=== PATIENT | female | born 1950 | race Caucasian/White ===

== ENCOUNTER 2017-06-06 14:35 | Observation (INO) | payer OTHER ==
[~2017-06-06 14:35] MED LIST: AMLO5 PO; BENZ100 PO; IPRASOL INH; LEVA500T33 PO; NEBULIZER/ADULT1 KIT INH; PRED10PA PO; ZITHTAB PO
[2017-06-06] MEDS ORDERED: SODIUM CHLORIDE 0.9% FLUSH 10 ML FLUSH IV FLUSH PRN (19:15)
[2017-06-06 20:26] VITALS: BP 176/92; PULSE 77; RESP 20; TEMP 97.5; O2SAT 92; O2SAT 94
[2017-06-06] MEDS ORDERED: LORazepam 2 MG/ML VIAL IV PUSH PRN (21:00)
[2017-06-06] MEDS: SODIUM CHLORIDE 0.9% FLUSH 10 ML FLUSH IV FLUSH SCH (21:36)
--- NOTE | 2017-06-06 21:58 | RADRPT ---
EXAM DATE/TIME: 06/06/2017 21:15 [facility] COMPARISON: No previous studies available for comparison. INDICATIONS : Cerebrovascular accident. MEDICAL HISTORY : Hypertension. Anxiety. Cerebrovascular accident. SURGICAL HISTORY : Hysterectomy. Lumpectomy. ENCOUNTER: Initial ACUITY: 1 day PAIN SCORE: 0/10 LOCATION: Bilateral neck PEAK SYSTOLIC VELOCITIES (cm/sec): ICA/CCA RATIO: Right: 1.0 Left: 2.3 ICA: Right: 91 Left: 171 CCA: Right: 90 Left: 75 ECA: Right: 97 Left: 96 VERTEBRAL: Right: 55 antegrade Left: 72 antegrade Elevated flow velocities and ICA/CCA ratios have been found to correlate with increased degrees of vessel stenosis, calculated as percentage of diameter relative to a normal segment of distal ICA/CCA FINDINGS: RIGHT CAROTID: Minimal calcified plaque in the carotid bulb. The waveforms are within normal limits. LEFT CAROTID: Scattered, punctate atherosclerotic calcified plaquing throughout the left carotid system.. The wave forms are within normal limits. VERTEBRAL ARTERIES: Antegrade flow is seen in both vertebral arteries. MISCELLANEOUS: None. CONCLUSION: 1. Minimal atherosclerotic plaque in the right carotid bulb with scattered punctate areas of calcific ation throughout the left carotid system. 2. Doppler velocities and ratios suggest a 50-69% stenosis in the left internal carotid system. Anteg rade flow in both vertebral arteries. Hemant Palacios MD on June 06, 2017 at 21:52 Board Certified Radiologist. This report was verified electronically.
--- NOTE | 2017-06-06 22:27 | RADRPT ---
EXAM DATE/TIME: 06/06/2017 21:49 [facility] COMPARISON: No previous studies available for comparison. INDICATIONS : CVA. MEDICAL HISTORY : None. SURGICAL HISTORY : Hysterectomy. Lumpectomy. ENCOUNTER: Initial ACUITY: 1 day PAIN SCORE: 5/10 LOCATION: Bilateral cranial orbits region. TECHNIQUE: Multiplanar, multisequence MRI of the brain was performed without contrast. FINDINGS: CEREBRUM: The ventricles are normal for age. No evidence of midline shift, mass lesion, hemorrhage or acute in farction. No extraaxial fluid collections are seen. The pituitary gland and suprasellar cistern are normal in configuration. WHITE MATTER: Minimal periventricular and scattered deep white matter tract areas of increased T2 and flair signal intensity. Similar findings in the pontine nucleus. POSTERIOR FOSSA: The cerebellum and brainstem are intact. The 4th ventricle is midline. The cerebellopontine angle is unremarkable. The cerebellar tonsils are normal in position. DIFFUSION IMAGING: No focal areas of restricted diffusion are seen. No evidence of acute infarction. EXTRACRANIAL: The visualized portions of the orbits and paranasal sinuses are unremarkable. CONCLUSION: 1. Chronic changes of mild pontine, periventricular and deep white matter tracts for vessel ischemic demyelination. 2. Nothing acute. Hemant Palacios MD on June 06, 2017 at 22:24 Board Certified Radiologist. This report was verified electronically.
--- NOTE | 2017-06-06 22:38 | RADRPT ---
EXAM DATE/TIME: 06/06/2017 21:49 [facility] COMPARISON: No previous studies available for comparison. INDICATIONS : CVA. MEDICAL HISTORY : None. SURGICAL HISTORY : Hysterectomy. Lumpectomy. ENCOUNTER: Initial ACUITY: 1 day PAIN SCORE: 5/10 LOCATION: Bilateral cranial orbits region. Please note a normal MRA of the brain does not entirely exclude the possibility of a small aneurysm, nor the possibility of distal intracranial vessel disease. TECHNIQUE: 3D time of flight MRA was performed. Source images, multiplanar STS MIP, and 3D volume MIP reconstru ctions were reviewed. FINDINGS: There is excellent visualization of the major intracranial arteries out to the second-order branch ve ssels. There is no evidence for aneurysm, vessel truncation or stenosis, and no evidence for vascula r malformation. Tortuosity of the posterior circulation. CONCLUSION: Intracranial vessels are patent without aneurysmal. Some tortuosity of the posterior circulation . Hemant Palacios MD on June 06, 2017 at 22:35 Board Certified Radiologist. This report was verified electronically.
--- NOTE | 2017-06-06 23:43 | HHI.HP ---
[facility] Non[facility]Staff Admission Diagnosis Visual field impairment, history of retinal CVA . Diagnoses: (1) Visual field defect of left eye (2) Community acquired pneumonia Chief Complaint: Seeing a "[place] of smoke" in her left visual field Travel History International Travel<30 Days: No Contact w/Intl Traveler <30 Da: No History of Present Illness Ms. Castaneda is a 67-year-old female with a history of tobacco abuse, retinal CVA , and hypertension who presented to the emergency room and [place] on 2016 complaining of a cloudy disturbance in her left field of vision that began 06/05 in the morning. She told the emergency room physician that she went to her "eye doctor" where they did a dilated eye exam along with other testing. She was told that her eye was "okay". She was concerned given her history of retinal CVA with vision loss in her right eye and came in to be evaluated. She was transferred to [facility] for further neurological evaluation following a negative head CT in [place]. The patient is seen in the CDU following MRI/MRA testing. She is sleepy after being given Ativan 1 mg IV for testing due to claustrophobia. She tells me that she started to see a "[place] of smoke" with her left eyes starting yesterday morning. She states that her symptoms are still present but are now accompanied by an appearance of "strings" between the [place] of smoke. She reports mild photophobia which is also noted during examination. She denies any eye pain. She denies any headache. She denies any unilateral weakness or paresthesias. She denies any problems with speech or swallowing. She does complain of fever up to 101 accompanied by nausea and dizziness. She states she's been sick for about 2 weeks with a cough and has been placed on antibiotics with persistent symptoms. Throughout the visit, she is noted to have a congested sounding cough. She denies any vomiting or diarrhea. Review of Systems Except as stated in HPI: all other systems reviewed are Neg Past Family Social History Past Medical History Hypertension Retinal CVA Respiratory infection for 2 weeks - Denies COPD but likely has COPD given her extensive smoking history Denies COPD, coronary artery disease, diabetes mellitus, liver problems, kidney problems, DVT, PE, seizures, cancers, or thyroid dysfunction. . Past Surgical History Hysterectomy Tonsillectomy Multiple breast lumpectomies bilateral (x 5) with benign findings . Reported Medications Reported Meds & Active Scripts Active Reported Norvasc (Amlodipine Besylate) 5 Mg Tab 5 Mg PO DAILY . Allergies: Coded Allergies: No Known Allergies (Verified Allergy, Unknown, 06/06/17) Active Ordered Medications Current Medications Sodium Chloride (NS Flush) 2 ml BID IV FLUSH Last administered on 06/06/17 21 :36; Start 06/06/17 at 21:00 Sodium Chloride (NS Flush) 2 ml UNSCH PRN IV FLUSH FLUSH AFTER USING IV ACCESS ; Start 06/06/17 at 19:15 Influenza Virus Vaccine (Flu (Quadrivalent) Vaccine Inj) 0.5 ml ONCE ONCE IM ; Start 06/07/17 at 10:00; Stop 06/07/17 at 10:01 Pneumococcal Polyvalent Vaccine (Pneumovax-23 Inj) 25 mcg ONCE ONCE IM ; Start 06/07/17 at 10:00; Stop 06/07/17 at 10:01 Lorazepam (Ativan Inj) 1 mg UNSCH X1 PRN IV PUSH MRI CLAUSTROPHOBIA Last administered on 06/06/17 21:37; Start 06/06/17 at 21:00; Stop 06/07/17 at 20 :59 . Family History Mother from myocardial infarction Father from AAA rupture Brother from bladder cancer . 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 Physical Exam Vital Signs Vital Signs Date Time Temp Pulse Resp B/P (MAP) Pulse Ox O2 Delivery O2 Flow Rate FiO2 06/06/17 20:26 97.5 77 20 176/92 (120) 94 Physical Exam GENERAL: This is a sleepy female patient, in no apparent distress who received Ativan 1 mg IV prior to MRI/MRA testing. SKIN: No rashes. Cool and dry. HEAD: Atraumatic. Normocephalic. EYES: No scleral icterus. No injection or drainage. Pupils equal round and reactive to light. Mildly photophobic. ENT: Nose without bleeding, purulent drainage. NECK: Trachea midline. No JVD. CARDIOVASCULAR: Regular rate and rhythm without murmurs, gallops, or rubs. RESPIRATORY: Breath sounds diminished at bases with a few faint scattered crackles auscultated, equal bilaterally. No wheezes or rhonchi. No accessory muscle use noted. GASTROINTESTINAL: Abdomen soft, non-tender, nondistended. No guarding. MUSCULOSKELETAL: Extremities without clubbing, cyanosis, or edema. No calf tenderness. NEUROLOGICAL: Sleepy. Motor and sensory grossly within normal limits. Normal speech. . Laboratory From [place]: Laboratory Tests Test 06/06/17 11:35 White Blood Count 9.4 TH/MM3 Red Blood Count 4.76 MIL/MM3 Hemoglobin 15.0 GM/DL Hematocrit 43.9 % Mean Corpuscular Volume 92.2 FL Mean Corpuscular Hemoglobin 31.5 PG Mean Corpuscular Hemoglobin Concent 34.2 % Red Cell Distribution Width 12.5 % Platelet Count 261 TH/MM3 Mean Platelet Volume 10.4 FL Immature Granulocyte % (Auto) 0.4 % Neutrophils (%) (Auto) 54.1 % Lymphocytes (%) (Auto) 20.1 % Monocytes (%) (Auto) 9.8 % Eosinophils (%) (Auto) 14.6 % Basophils (%) (Auto) 1.0 % Immature Granulocyte # (Auto) 0.0 TH/MM3 Neutrophils # (Auto) 5.1 TH/MM3 Lymphocytes # (Auto) 1.9 TH/MM3 Monocytes # (Auto) 0.9 TH/MM3 Eosinophils # (Auto) 1.4 TH/MM3 Basophils # (Auto) 0.1 TH/MM3 CBC Comment DIFF FINAL Differential Comment Prothrombin Time 10.3 SEC Prothromb Time International Ratio 1.0 RATIO Activated Partial Thromboplast Time 24.9 SEC Blood Urea Nitrogen 7 MG/DL Creatinine 0.80 MG/DL Random Glucose 90 MG/DL Total Protein 6.9 GM/DL Albumin 3.4 GM/DL Calcium Level 8.7 MG/DL Magnesium Level 2.3 MG/DL Alkaline Phosphatase 69 U/L Aspartate Amino Transf (AST/SGOT) 17 U/L Alanine Aminotransferase (ALT/SGPT) 25 U/L Total Bilirubin 0.3 MG/DL Sodium Level 144 MEQ/L Potassium Level 3.7 MEQ/L Chloride Level 109 MEQ/L Carbon Dioxide Level 26.0 MEQ/L Anion Gap 9 MEQ/L Estimat Glomerular Filtration Rate 72 ML/MIN Total Creatine Kinase 46 U/L Troponin I LESS THAN 0.02 NG/ML Imaging Last Impressions Head Magnetic Resonance Angiography 06/06/172021 Signed Impressions: Service Date/Time: Tuesday, June 06, 2017 21:49 - CONCLUSION: Intracranial vessels are patent without aneurysmal. Some tortuosity of the posterior circulation. Hemant Palacios MD Carotid Artery Ultrasound 06/06/172021 Signed Impressions: Service Date/Time: Tuesday, June 06, 2017 21:15 - CONCLUSION: 1. Minimal atherosclerotic plaque in the right carotid bulb with scattered punctate areas of calcification throughout the left carotid system. 2. Doppler velocities and ratios suggest a 50-69%% stenosis in the left internal carotid system. Antegrade flow in both vertebral arteries. Hemant Palacios MD Brain MRI 06/06/172021 Signed Impressions: Service Date/Time: Tuesday, June 06, 2017 21:49 - CONCLUSION: 1. Chronic changes of mild pontine, periventricular and deep white matter tracts for vessel ischemic demyelination. 2. Nothing acute. Hemant Palacios MD From [place]: Last Impressions Head CT 06/06/171122 Signed Impressions: Service Date/Time: Tuesday, June 06, 2017 12:14 - CONCLUSION: No acute process Rodolfo Ramos MD Chest X-Ray 06/06/171122 Signed Impressions: Service Date/Time: Tuesday, June 06, 2017 12:16 - CONCLUSION: 1. Chronic interstitial lung disease. 2. Mild new bibasilar airspace disease. 3. No other significant abnormality. Drew Buchanan MD Caprini VTE Risk Assessment Caprini VTE Risk Assessment: Mod/High Risk (score >= 2) Caprini Risk Assessment Model Point Value = 1 Point Value = 2 Point Value = 3 Point Value = 5 Age 41-60 Minor surgery BMI > 25 kg/m2 Swollen legs Varicose veins or History of unexplained or recurrent spontaneous Oral contraceptives or hormone replacement Sepsis (< 1 month) Serious lung disease, including pneumonia (< 1 month) Abnormal pulmonary function Acute myocardial infarction Congestive heart failure (< 1 month) History of inflammatory bowel disease Medical patient at bed rest Age 61-74 Arthroscopic surgery Major open surgery (> 45 min) Laparoscopic surgery (> 45 min) Malignancy Confined to bed (> 72 hours) Immobilizing plaster cast Central venous access Age >= 75 History of VTE Family history of VTE Factor V Leiden Prothrombin [id number] Lupus anticoagulant Anticardiolipin antibodies Elevated serum homocysteine Heparin-induced thrombocytopenia Other congenital or acquired thrombophilia Stroke (< 1 month) Elective arthroplasty Hip, pelvis, or leg fracture Acute spinal cord injury (< 1 month) Prophylaxis Regimen Total Risk Factor Score Risk Level Prophylaxis Regimen 0-1 Low Early ambulation 2 Moderate Order ONE of the following: *Sequential Compression Device (SCD) *Heparin 5000 units SQ BID 3-4 Higher Order ONE of the following medications: *Heparin 5000 units SQ TID *Enoxaparin/Lovenox 40 mg SQ daily (WT < 150 kg, CrCl > 30 mL/min) *Enoxaparin/Lovenox 30 mg SQ daily (WT < 150 kg, CrCl > 10-29 mL/min) *Enoxaparin/Lovenox 30 mg SQ BID (WT < 150 kg, CrCl > 30 mL/min) AND/OR *Sequential Compression Device (SCD) 5 or more Highest Order ONE of the following medications: *Heparin 5000 units SQ TID (Preferred with Epidurals) *Enoxaparin/Lovenox 40 mg SQ daily (WT < 150 kg, CrCl > 30 mL/min) *Enoxaparin/Lovenox 30 mg SQ daily (WT < 150 kg, CrCl > 10-29 mL/min) *Enoxaparin/Lovenox 30 mg SQ BID (WT < 150 kg, CrCl > 30 mL/min) AND *Sequential Compression Device (SCD) Assessment and Plan Problem List: (1) Visual field defect of left eye ICD Code: H53.40 - Unspecified visual field defects (2) Community acquired pneumonia ICD Code: J18.9 - Pneumonia, unspecified organism Assessment and Plan Ms. Castaneda is a 67-year-old female with a history of tobacco abuse, retinal CVA , and hypertension who presented to the emergency room and [place] on 2016 complaining of a cloudy disturbance in her left field of vision that began yesterday morning. She told the emergency room physician that she went to her "eye doctor" where they did a dilated eye exam along with other testing. She was told that her eye was "okay". She was concerned given her history of retinal CVA with vision loss in her right eye and came in to be evaluated. She was transferred to [facility] for further neurological evaluation following a negative head CT in [place]. Left visual field impairment - Negative head CT - MRA of brain shows intracranial vessels are patent without aneurysm. Some tortuosity of posterior circulation was noted. - MRI of brain showed chronic changes of mild pontine, periventricular, and deep white matter tracts for vessel ischemic demyelination. No acute findings were noted. - MS? - Carotid US shows plaque in right carotid bulb with scattered punctate areas of calcification throughout the left carotid system. Doppler velocities and ratios suggest a 50-69% stenosis in the left internal carotid artery system. Antegrade flow in both vertebral arteries. - Consult neurology - appreciate assistance - Patient saw an outpatient "Eye Doctor" - will need to obtain records during office hours - the patient reported a normal examination on 06/06/17. Community Acquired Pneumonia, failed outpatient treatment - patient was treated with Zithromax initially and then Levaquin and duonebs in the ED at [facility] - CXR demonstrates chronic interstitial lung disease and mild new bibasilar airspace disease, patient continues to be symptomatic also - Check sputum culture - Start cefepime 2 g IV every 8 hours - Duo nebulizers every 6 hours scheduled and every 4 hours as needed for shortness of breath - Supplemental oxygen titrated to maintain oxygen saturation greater than 92% Tobacco Abuse - counselled patient to quit smoking cigarettes Awaiting medication reconciliation to be completed by nursing staff to resume patient's home medications. DVT prophylaxis - Lovenox 40 mg subq q24h Discussed Condition With Dr. Gorman, patient, and Aracely Navarro Jun 06, 2017 23:43
[2017-06-07] VITALS (12 sets, daily range): BP systolic 114–139; BP diastolic 67–87; PULSE 58–84; RESP 18–20; TEMP 97.9–98.5; O2SAT 93–98
[2017-06-07] MEDS ORDERED: RESP: ALBUTEROL 2.5 MG/IPRATROPIUM 0.5 MG NEB (PRN) INH (02:00)
[2017-06-07] MEDS ORDERED: SODIUM CHLORIDE 0.9% FLUSH 10 ML FLUSH IV FLUSH PRN (02:00)
[2017-06-07] MEDS: RESP: ALBUTEROL 2.5 MG/IPRATROPIUM 0.5 MG NEB (SCH) INH ×4 (03:07→20:52)
[2017-06-07] MEDS: CEFEPIME INJ 2,000 MG in SODIUM CHLORIDE 0.9% INJ 100 ML IV SCH ×3 (07:21→19:39)
[2017-06-07] MEDS ORDERED: SODIUM CHLOR 0.9% 1000 ML INJ 1,000 ML IV SCH (07:54)
[2017-06-07 08:34] LABS: CHOLESTEROL/ HDL RATIO 4.15 RATIO; HDL CHOLESTEROL 39.2 MG/DL (40.0-60.0)
[2017-06-07] MEDS: SODIUM CHLORIDE 0.9% FLUSH 10 ML FLUSH IV FLUSH SCH ×2 (09:00→20:05)
[2017-06-07] MEDS: ENOXAPARIN SODIUM 40 MG/0.4 ML SYRINGE SQ SCH (09:00)
[2017-06-07] MEDS ORDERED: SODIUM CHLORIDE 0.9% FLUSH 10 ML FLUSH IV FLUSH SCH (09:00)
--- NOTE | 2017-06-07 09:00 | MB ---
cc: ERICK HIGHTOWER DATE OF CONSULTATION 06/07/2017 REASON FOR CONSULTATION This is a 67-year-old right-handed woman neurology consult with hypertension, a retinal possible artery occlusion 30 years ago which left her with some decreased vision in the right eye medially and inferiorly who says two days ago she suddenly had the onset of a smoky type sensation across the vision in her left eye and some dark lines running through that and that has continued until now. She saw ophthalmology on Sunday and they did not find anything wrong with dilating her eyes and she went to the ER yesterday and got admitted here. No headache associated with it. She has had a cold and a cough for about 10 days and has been on antibiotics. She has had some chest heaviness. No asymmetrical weakness or numbness. SOCIAL HISTORY She is a smoker and I have asked her to quit. She occasionally has a drink and lives with his son. FAMILY HISTORY Positive for cancer in her brother, negative for seizure or stroke. REVIEW OF SYSTEMS She denies any diabetes, hypercholesterolemia, WI, stent, angioplasty, A fib, Coumadin, pacemaker, renal, hepatic or pulmonary disease, thyroid disease, lupus, ulcer cancer, seizure or known stroke besides the retinal apparent occlusion. She denies any history of blood clots or miscarriages. MEDICATIONS 1. Norvasc 2. Prednisone 3. Benzonatate 4. Zithromax ALLERGIES NO KNOWN DRUG ALLERGIES. She does not take an aspirin a day. PHYSICAL EXAM VITAL SIGNS: Sinus rhythm, afebrile, 114/67 to 176/92. Highest blood pressure when she came in 180/88. There were no carotid bruits. HEART: Regular rhythm. I did not detect a murmur. NEUROLOGIC: Pupils are equal. The right eye, she has some decreased visual acuity and cannot see inferiorly, medially. The left eye, her visual segura are full. Visual acuity was 20/50 best corrected with very thick lens glasses. She has very poor vision bilaterally and that is her baseline. Extraocular movements intact without nystagmus. Face is symmetric with normal sensation. Tongue was midline. There is no drift on the right, on the left, she has fracture, she tells me, on her shoulder and is unable to lift the arm up, but she had normal strength in the left finger extensors and moves the left hand well. Strength otherwise was normal in the upper and lower extremities bilaterally. Toes downgoing bilaterally. DTRs are 2+ symmetric throughout. Pinprick was intact throughout. She is not ataxic. Speech is fluent. She is not aphasic. LABORATORY DATA CBC is normal. Coags normal. Basic metabolic profile, troponin, CPK, albumin all normal. She had an MRI of her brain done yesterday that was negative for anything acute. She had a carotid ultrasound 50-69% on the left. She had an MRA elem of Smith which was normal. She had a chest x-ray that showed some air space disease, some chronic changes. CT scan of the brain was read as normal. Review of the MRI films does not show an infarct. It showed some white matter disease in the puja. A few white matter changes bilaterally, a little bit more on the right than the left, but fairly symmetrical. No hemorrhages noted. Orbits appear to be normal. Review of the films is really otherwise there is no infarct in the occipital lobe. I do not see any abnormality. MRA elem Smith is intact. Vertebrobasilar system looks fine. Source images, it is hard to tell if this is not some diminished flow at the proximal aspect of the left posterior cerebral artery, it looks intact. There may be a focal stenosis there, however, that would actually indicate more vision guide changer to the right and she identifies this in her left eye only. IMPRESSION From the MRI, she has not had an infarct and really by her history, there is no smoky sensation in the right eye at all and this indicates probably more of a problem with the eyeball itself whether she could have a cataract or something else it is unclear. I think we will check a CTA of the elem of Smith and neck with the carotid disease on the ultrasound and a questionable abnormality of the origin of left BIOLOGICAL SCIENCES PROFESSOR, however, I do not think the pulmonary history and her symptoms at the left BIOLOGICAL SCIENCES PROFESSOR would be symptomatic. I will check a sed rate on her and CRP along with a cholesterol level, some additional blood work. If the CTA looks fine especially at the posterior cerebral artery in the carotids in the neck and the sed rate and CRP are normal, she could be discharged on an aspirin a day, quit smoking. Follow up her cholesterol level and see an accountant budget as it appears to since it is one eye more of an ophthalmological problem. I note she has not seen an accountant budget. She saw an coupon and bond collection clerk. There is also the issue of the chest pressure she is having and whether she needs see cardiology or not. I defer to the med team. I will also on her order an EEG and I can follow up the results unless we can get ophthalmology to see her here in the hospital before discharge, I would defer to the med team on that. MD WILL Garcia/CHIKIS /7:42 AM /8:18 AM
[2017-06-07] MEDS ORDERED: IOHEXOL 350 MG/ML 10 ML VIAL (for RAD DIAG) IVCONTRAST ONE (09:02)
[2017-06-07] MEDS: ASPIRIN EC 81 MG TABEC PO SCH (09:26)
--- NOTE | 2017-06-07 09:45 | RADRPT ---
EXAM DATE/TIME: 06/07/2017 08:42 [facility] COMPARISON: No previous studies available for comparison. INDICATIONS : Dizziness and visual changes. IV CONTRAST: 74 cc Omnipaque 350 (iohexol) IV ; Cumulative dose for multiple exams. RADIATION DOSE: 14.28 CTDIvol (mGy) ; Combined studies MEDICAL HISTORY : Hypertension. SURGICAL HISTORY : None. ENCOUNTER: Initial ACUITY: 2 days PAIN SCALE: 0/10 LOCATION: cranial TECHNIQUE: Volumetric scanning was performed using a multi-row detector CT scanner. The data was post processed with a variety of visualization algorithms including full volume maximum intensity projection, multi -planar sliding thin slab reformation, curved planar reformation, and surface rendering techniques. Using automated exposure control and adjustment of the mA and/or kV according to patient size, radiat ion dose was kept as low as reasonably achievable to obtain optimal diagnostic quality images. DICO M format image data is available electronically for review and comparison. FINDINGS: There is high grade focal concentric stenosis at the origin of the left posterior cerebral artery. Th e intracranial circulation is otherwise intact and unremarkable with no areas of significant stenotic disease in the anterior circulation vessels. 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 There is no evidence of aneurysm or vascular malformation. 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 This report was verified electronically.
[2017-06-07] MEDS ORDERED: PNEUMOCOCCAL POLYVALENT INJ 25 MCG/0.5 ML SYR IM ONE (10:00)
[2017-06-07] MEDS ORDERED: INFLUENZA VIRUS VACCINE (QUADRIVALENT) 0.5 ML SYR IM ONE (10:00)
[2017-06-07 10:07] LABS: C-REACTIVE PROTEIN 1.2 MG/DL (0.00-0.30)
--- NOTE | 2017-06-07 10:37 | RADRPT ---
EXAM DATE/TIME: 06/07/2017 08:42 [place] COMPARISON: US CAROTID ARTERIES, June 06, 2017, 21:15. INDICATIONS : Dizziness and visual changes. IV CONTRAST: 74 cc Omnipaque 350 (iohexol) IV ; Cumulative dose for multiple exams. RADIATION DOSE: 14.28 CTDIvol (mGy) ; Combined studies MEDICAL HISTORY : Hypertension. SURGICAL HISTORY : None. ENCOUNTER: Initial ACUITY: 2 days PAIN SCALE: 0/10 LOCATION: neck Elevated flow velocities and ICA/CCA ratios have been found to correlate with increased degrees of vessel stenosis, calculated as percentage of diameter relative to a normal segment of distal ICA/CCA. TECHNIQUE: Volumetric scanning was performed using a multirow detector CT scanner. The data was post processed with a variety of visualization algorithms including full-volume maximum intensity projection, multip lanar sliding thin-slab reformation, curved-planar reformation, and surface-rendering techniques. Us ing automated exposure control and adjustment of the mA and/or kV according to patient size, radiatio n dose was kept as low as reasonably achievable to obtain optimal diagnostic quality images. DICOM f ormat image data is available electronically for review and comparison. FINDINGS: AORTIC ARCH: There is a three-vessel origin of the great vessels from the aorta. No evidence of ostial narrowing. RIGHT CAROTID: The common carotid artery is intact. The carotid bulb has a normal configuration without ulceration o r narrowing. The internal carotid artery lumen is smooth without stenosis. The external carotid mitali ry is intact. LEFT CAROTID: The common carotid artery is intact. The carotid bulb has a normal configuration without ulceration or narrowing. The internal carotid artery lumen is smooth without stenosis. The external carotid ar los is intact. VERTEBRALS: The vertebral arteries have a symmetric diameter. No stenotic lesions are seen. CONCLUSION: 1. There is minimal calcified atherosclerotic plaque but no luminal narrowing or ulceration. The elev ated velocity involving the left vertebral artery seen on the ultrasound is felt related to the tortu osity of the extracranial ICA. Rob Hopkins Jr., MD on June 07, 2017 at 10:27 Board Certified Radiologist. This report was verified electronically.
--- NOTE | 2017-06-07 14:06 | HHI.PR ---
Subjective Remarks Patient seen today around noon. Says she is feeling physically okay, however still has visual field deficit without any worsening or improvement. Denies any chest pain or shortness of breath. Denies any nausea or vomiting. Patient says she will quit smoking. Objective Vital Signs Date Time Temp Pulse Resp B/P (MAP) Pulse Ox O2 Delivery O2 Flow Rate FiO2 06/07/17 11:49 84 06/07/17 09:46 93 21 06/07/17 07:30 58 06/07/17 07:29 98.3 68 20 114/67 (83) 94 06/07/17 06:16 97.9 74 18 129/69 (89) 96 06/07/17 04:54 65 06/07/17 03:08 95 Nasal Cannula 3.00 06/07/17 03:06 65 06/07/17 00:57 98.5 68 18 138/87 (104) 93 06/06/17 20:26 97.5 77 20 176/92 (120) 94 Objective Remarks GENERAL: Patient sitting up in bed. Appears comfortable. Oriented 3. SKIN: Warm and dry. HEAD: Normocephalic. EYES: No scleral icterus. No injection or drainage. NECK: Supple, trachea midline. No JVD. CARDIOVASCULAR: Regular rate and rhythm without murmurs, gallops, or rubs. RESPIRATORY: Breath sounds equal bilaterally. No accessory muscle use. GASTROINTESTINAL: Abdomen soft, non-tender, nondistended. MUSCULOSKELETAL: No cyanosis, or edema. BACK: Nontender without obvious deformity. No CVA tenderness. A/P Assessment and Plan Ms. Castaneda is a 67-year-old female with a history of tobacco abuse, retinal CVA , and hypertension who presented to the emergency room and [place] on 2016 complaining of a cloudy disturbance in her left field of vision that began yesterday morning. She told the emergency room physician that she went to her "eye doctor" where they did a dilated eye exam along with other testing. She was told that her eye was "okay". She was concerned given her history of retinal CVA with vision loss in her right eye and came in to be evaluated. She was transferred to [facility] for further neurological evaluation following a negative head CT in [place]. //Left visual field impairment - Negative head CT - MRA of brain shows intracranial vessels are patent without aneurysm. Some tortuosity of posterior circulation was noted. - MRI of brain showed chronic changes of mild pontine, periventricular, and deep white matter tracts for vessel ischemic demyelination. No acute findings were noted. - MS? - Carotid US shows plaque in right carotid bulb with scattered punctate areas of calcification throughout the left carotid system. Doppler velocities and ratios suggest a 50-69% stenosis in the left internal carotid artery system. Antegrade flow in both vertebral arteries. - Consult neurology - appreciate assistance - Patient saw an outpatient "Eye Doctor" - will need to obtain records during office hours - the patient reported a normal examination on 06/06/17. = Left AUTOMOTIVE LOT ATTENDANT proximal stenosis on CT angiogram. plan per neurology. //Community Acquired Pneumonia, failed outpatient treatment - patient was treated with Zithromax initially and then Levaquin and duonebs in the ED at [facility] [place] - CXR demonstrates chronic interstitial lung disease and mild new bibasilar airspace disease, patient continues to be symptomatic also - Check sputum culture - Start cefepime 2 g IV every 8 hours - Duo nebulizers every 6 hours scheduled and every 4 hours as needed for shortness of breath - Supplemental oxygen titrated to maintain oxygen saturation greater than 92% = Respiratory status stable. 19 is for this treatment. Add incentive spirometer and Acapella. Tobacco Abuse - counselled patient to quit smoking cigarettes again. Discharge Planning Pending neurology clearance for posterior AUTOMOTIVE LOT ATTENDANT stenosis. Awaiting callback. Will need antibiotic course for pneumonia. Can send home with incentive spirometry. Gabo Godfrey MD Jun 07, 2017 14:06
--- NOTE | 2017-06-07 17:31 | ECHRPT ---
Indication: CVA/TIA CONCLUSIONS Normal left ventricular size. Wall thickness is normal. The left ventricular systolic function is low normal with an estimated ejection fraction in the rang e of 50- 55%. Trace mitral valve regurgitation. BP: 176 / 92 HR: 77 Rhythm: MEASUREMENTS (Male / Female) Normal Values Technical Quality:Good 2D ECHO LV Diastolic Diameter PLAX 4.6 cm 4.2 - 5.9 / 3.9 - 5.3 cm LV Systolic Diameter PLAX 3.5 cm IVS Diastolic Thickness 0.9 cm 0.6 - 1.0 / 0.6 - 0.9 cm LVPW Diastolic Thickness 0.7 cm 0.6 - 1.0 / 0.6 - 0.9 cm LV Relative Wall Thickness 0.4 RV Internal Dim ED PLAX 2.5 cm LA Systolic Diameter LX 3.0 cm 3.0 - 4.0 / 2.7 - 3.8 cm M-MODE Aortic Root Diameter MM 3.2 cm AV Cusp Separation MM 2.0 cm DOPPLER AV Peak Velocity 159.0 cm/s AV Peak Gradient 10.1 mmHg LVOT Peak Velocity 128.0 cm/s LVOT Peak Gradient 6.6 mmHg Mitral E Point Velocity 97.2 cm/s Mitral A Point Velocity 89.3 cm/s Mitral E to A Ratio 1.1 TR Peak Velocity 171.5 cm/s TR Peak Gradient 11.8 mmHg Right Atrial Pressure 5.0 mmHg Pulmonary Artery Systolic Pressu 16.8 mmHg Right Ventricular Systolic Press 16.8 mmHg FINDINGS LEFT VENTRICLE Normal left ventricular size. Wall thickness is normal. The left ventricular systolic function is low normal with an estimated ejection fraction in the rang e of 50- 55%. RIGHT VENTRICLE Normal right ventricular size and systolic function. LEFT ATRIUM The left atrial size is normal. RIGHT ATRIUM The right atrial size is normal. ATRIAL SEPTUM Normal atrial septal thickness without atrial level shunting by limited color doppler interrogation. AORTA The aortic root and proximal ascending aorta are normal in size on limited imaging. MITRAL VALVE Trace mitral valve regurgitation. AORTIC VALVE Trileaflet aortic valve. No aortic valve stenosis or regurgitation. TRICUSPID VALVE Structurally normal tricuspid valve. No tricuspid valve stenosis or regurgitation. PULMONARY VALVE No pulmonary valve regurgitation or stenosis. VESSELS The inferior vena cava is normal in size. PERICARDIUM No pericardial effusion. Raciel Londono MD (Electronically Signed) Final Date:07 June 2017 17:30
[2017-06-07 20:06] LABS: HEMOGLOBIN A1C 5.2 % (4.3-6.0)
--- NOTE | 2017-06-07 22:08 | MG ---
cc: JENNA CHRISTIANSEN MD Lab No: [id number] Date: 06/07/17 Age: Sex: F Race: 1950 A 67-year-old female with history of retinal stroke, hypertension, anxiety, some visual changes. Apparent sleep state stage II spindles, low amplitude theta and some delta activity with frequent arousals. Phase reversal T3 epoch 12. Good EEG variability reactivity. Reduced driving with photic stimulation. Tiny sharp transients noted left greater than right posterior region. Single EKG showing sinus rhythm. INTERPRETATION Nonspecific changes left frontotemporal region, mostly stage II sleep and awake state. Clinical correlation. MD SEAMUS Brennan/ /9:27 PM /9:52 PM
[2017-06-08] VITALS: BP 149/82; PULSE 78; RESP 20; TEMP 97.8; O2SAT 95
[2017-06-08] MEDS: CEFEPIME INJ 2,000 MG in SODIUM CHLORIDE 0.9% INJ 100 ML IV SCH ×2 (02:00→10:20)
[2017-06-08] MEDS: RESP: ALBUTEROL 2.5 MG/IPRATROPIUM 0.5 MG NEB (SCH) INH ×2 (03:00→09:18)
[2017-06-08 04:00] VITALS: BP 141/70; PULSE 73; RESP 20; TEMP 97.6; O2SAT 93
[2017-06-08 07:00] VITALS: PULSE 65
[2017-06-08 07:18] VITALS: BP 155/71; PULSE 66; RESP 18; TEMP 97.8; O2SAT 95
--- NOTE | 2017-06-08 07:59 | HHI.PR ---
Objective Vital Signs Date Time Temp Pulse Resp B/P (MAP) Pulse Ox O2 Delivery O2 Flow Rate FiO2 06/08/17 07:18 97.8 66 18 155/71 (99) 95 06/08/17 04:00 97.6 73 20 141/70 (93) 93 06/08/17 00:00 97.8 78 20 149/82 (104) 95 06/07/17 20:52 98 06/07/17 19:45 98.2 76 20 135/75 (95) 95 06/07/17 17:17 98.2 76 20 139/73 (95) 93 06/07/17 11:49 84 06/07/17 09:46 93 21 I/O 06/07/17 06/07/17 06/07/17 06/08/17 06/08/17 06/08/17 07:00 15:00 23:00 07:00 15:00 23:00 # Voids 4 Objective Remarks vff still smoky left eye sr 5/5 nl speech Assessment and Plan Assessment and Plan imp she does have some sign left office services specialist proximal stenosis on cta not symptomatic rx asa and should be on statin with inc ldl eeg some mild post sharps i will review study ldl 103 still some chest pressure and i defer to med team if needs cards esr nl crp mild inc 1.2 she needs opthamology before dc as she just changed to [facility] and has no pcp ? cards ow if optho clears could dc Clyde Gr MD Jun 08, 2017 07:58
[2017-06-08] MEDS: ENOXAPARIN SODIUM 40 MG/0.4 ML SYRINGE SQ SCH (08:19)
[2017-06-08] MEDS: SODIUM CHLORIDE 0.9% FLUSH 10 ML FLUSH IV FLUSH SCH (08:19)
[2017-06-08] MEDS: ASPIRIN EC 81 MG TABEC PO SCH (08:19)
[2017-06-08 09:20] VITALS: O2SAT 93
[2017-06-08 11:29] LABS: ANA SCREEN NEG (NEG)
--- NOTE | 2017-06-08 11:35 | PD.CONS ---
History of Present Illness Service Ophthalmology Consult Requested By Reason for Consult left eye visual disturbance Primary Care Physician Non-Staff Diagnoses: History of Present Illness 67 yo F with history of HTN presented to the emergency room in [place] on 2016 complaining of a cloudy disturbance in her left field of vision that began 06/05 in the morning. She went to [facility] and was seen my an Almond Cutting Machine Tender who did a dilated eye exam and saw nothing wrong. She was concerned given her history of retinal stroke in her right eye so she came in to be evaluated. She was transferred to [facility] for further neurological evaluation following a negative head CT in [place]. Essentially normal MRI/MRA/carotid doppler. Ocular history significant for a "retinal stroke" of her right eye that happened 25 years ago. Past Family Social History Allergies: Coded Allergies: No Known Allergies (Verified Allergy, Unknown, 06/06/17) Physical Exam Vital Signs Vital Signs Date Time Temp Pulse Resp B/P (MAP) Pulse Ox O2 Delivery O2 Flow Rate FiO2 06/08/17 09:20 93 21 06/08/17 07:18 97.8 66 18 155/71 (99) 95 06/08/17 04:00 97.6 73 20 141/70 (93) 93 06/08/17 00:00 97.8 78 20 149/82 (104) 95 06/07/17 20:52 98 06/07/17 19:45 98.2 76 20 135/75 (95) 95 06/07/17 17:17 98.2 76 20 139/73 (95) 93 06/07/17 11:49 84 Physical Exam Va cc at near OD 20/400, OS 20/400 EOM full OU, no diplopia CVF full OU Pupils 2-1 no APD OU IOP normal to palpation OU OD - normal eyelid, C/S W&Q, K clear, AC deep, pupil round, lens clear OS - normal eyelid, C/S W&Q, K clear, AC deep, pupil round, lens clear OD - ON s/p/f, ves normal, vit clear, retina flat OS - ON s/p/f, ves normal, vit clear, retina flat Assessment and Plan Problem List: (1) Vision loss, left eye ICD Codes: H54.62 - Unqualified visual loss, left eye, normal vision right eye Plan: Normal dilated eye exam. Unexplained vision loss - functional? Follow up as outpatient on Sunday at 2:[address] [facility]. [phone]. May need to see Neuro Ophthalmology/Retina as an outpatient. Aminah Avila MD Jun 08, 2017 11:35
[2017-06-08 11:56] VITALS: BP 140/73; PULSE 83; RESP 16; TEMP 97.5; O2SAT 93
[2017-06-08] MEDS ORDERED: LIPI10TA PO (14:13)
[2017-06-08] MEDS ORDERED: ECASA81 PO (14:13)
[2017-06-08] MEDS ORDERED: AZIT250T3 PO (14:16)
--- NOTE | 2017-06-08 14:16 | HHI.PR ---
Subjective Remarks Follow-up left visual field defect/deficits 06/08/17-patient seen and examined, complaining of feeling of smoky left by associated with occasional headaches however denies any nausea. patient was seen by ophthalmology and has set up a follow-up on 06/11/17 Objective Vitals Vital Signs Date Time Temp Pulse Resp B/P (MAP) Pulse Ox O2 Delivery O2 Flow Rate FiO2 06/08/17 11:56 97.5 83 16 140/73 (95) 93 06/08/17 09:20 93 21 06/08/17 07:18 97.8 66 18 155/71 (99) 95 06/08/17 04:00 97.6 73 20 141/70 (93) 93 06/08/17 00:00 97.8 78 20 149/82 (104) 95 06/07/17 20:52 98 06/07/17 19:45 98.2 76 20 135/75 (95) 95 06/07/17 17:17 98.2 76 20 139/73 (95) 93 I/O 06/07/17 06/07/17 06/07/17 06/08/17 06/08/17 06/08/17 07:00 15:00 23:00 07:00 15:00 23:00 # Voids 4 Imaging Last Impressions Neck CTA 06/07/17753 Signed Impressions: Service Date/Time: May 08:42 - CONCLUSION: 1. There is minimal calcified atherosclerotic plaque but no luminal narrowing or ulceration. The elevated velocity involving the left vertebral artery seen on the ultrasound is felt related to the tortuosity of the extracranial ICA. Rob Hopkins Jr., MD Head CTA 06/07/17753 Signed Impressions: Service Date/Time: May 08:42 - CONCLUSION: High- grade stenosis of the proximal left PAINT DEPARTMENT SUPERVISOR Rodolfo Ramos MD Head Magnetic Resonance Angiography 06/06/172021 Signed Impressions: Service Date/Time: Tuesday, June 06, 2017 21:49 - CONCLUSION: Intracranial vessels are patent without aneurysmal. Some tortuosity of the posterior circulation. Hemant Palacios MD Carotid Artery Ultrasound 06/06/172021 Signed Impressions: Service Date/Time: Tuesday, June 06, 2017 21:15 - CONCLUSION: 1. Minimal atherosclerotic plaque in the right carotid bulb with scattered punctate areas of calcification throughout the left carotid system. 2. Doppler velocities and ratios suggest a 50-69%% stenosis in the left internal carotid system. Antegrade flow in both vertebral arteries. Hemant Palacios MD Brain MRI 06/06/172021 Signed Impressions: Service Date/Time: Tuesday, June 06, 2017 21:49 - CONCLUSION: 1. Chronic changes of mild pontine, periventricular and deep white matter tracts for vessel ischemic demyelination. 2. Nothing acute. Hemant Palacios MD Objective Remarks GENERAL: NAD SKIN: Warm and dry. HEAD: Normocephalic. EYES: No scleral icterus. No injection or drainage. NECK: Supple, trachea midline. No JVD or lymphadenopathy. CARDIOVASCULAR: Regular rate and rhythm without murmurs, gallops, or rubs. RESPIRATORY: Breath sounds equal bilaterally. No accessory muscle use. GASTROINTESTINAL: Abdomen soft, non-tender, nondistended. MUSCULOSKELETAL: No cyanosis, or edema. BACK: Nontender without obvious deformity. No CVA tenderness. Procedures none A/P Problem List: (1) Visual field defect of left eye ICD Code: H53.40 - Unspecified visual field defects (2) Community acquired pneumonia ICD Code: J18.9 - Pneumonia, unspecified organism Assessment and Plan 1-Left visual field impairment - Negative head CT - MRA of brain shows intracranial vessels are patent without aneurysm. Some tortuosity of posterior circulation was noted. - MRI of brain showed chronic changes of mild pontine, periventricular, and deep white matter tracts for vessel ischemic demyelination. - Carotid US shows plaque in right carotid bulb with scattered punctate areas of calcification throughout the left carotid system. Doppler velocities and ratios suggest a 50-69% stenosis in the left internal carotid artery system. Antegrade flow in both vertebral arteries. - left PAINT DEPARTMENT SUPERVISOR proximal stenosis on CTA - Appreciate input from both neurology and ophthalmology -Patient will need follow-up with ophthalmology Sunday at 2:30 pm. [address] [phone]. May need to see Neuro Ophthalmology/Retina as an outpatient. 2-Community Acquired Pneumonia, failed outpatient treatment - Currently on cefepime, will discharge home on azithromycin -Advised on tobacco cessation 3-Tobacco Abuse - counselled patient to quit smoking cigarettes again DVT prophylaxis: Lovenox Discharge Planning Discharge patient to home Condition on discharge: Improved Regular Diet as tolerated Ad Kenzie activity Rx written: see EMR Follow-up with primary care physician in one week Ophthalmology Sunday at 2:[address] [facility]. [phone]. Problem Qualifiers (1) Community acquired pneumonia: Qualified Codes: J18.9 - Pneumonia, unspecified organism Chriss Solis MD Jun 08, 2017 14:16
--- NOTE | 2017-06-08 17:52 | HHI.PR ---
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 cards ow if optho clears could dc addendum 6 pm 06/08/17 i reviewed eeg there were a few left temporal sharp waves of about 80mcV T3 during stage two sleep Clyde Gr MD Jun 08, 2017 17:52
== END 2017-06-08 16:03 | disposition home or self-care (01) ==
LOC: NEDDLT 14:35 → NEPFCDU 19:02 → N07B 22:28 → NEPFCDU 22:34
PROVIDERS: ADMIT Hospitalist; ATTEND Hospitalist
DX: H54.62 Unqualified visual loss, left eye, normal vision right eye (principal); J18.9 Pneumonia, unspecified organism; R51 Headache; I10 Essential (primary) hypertension; J84.9 Interstitial pulmonary disease, unspecified; I66.3 Occlusion and stenosis of cerebellar arteries; F41.9 Anxiety disorder, unspecified; F40.240 Claustrophobia; R06.89 Other abnormalities of breathing; R79.89 Other specified abnormal findings of blood chemistry; F17.210 Nicotine dependence, cigarettes, uncomplicated; Z79.899 Other long term (current) drug therapy; Z86.73 Personal history of transient ischemic attack (TIA), and cerebral infarction without residual deficits; Z23 Encounter for immunization
CPT/HCPCS: 70450; 70496; 70498; 70544; 70551; 71010; 80053; 80061; 82550; 82607; 82948; 83036; 83735; 84425; 84439; 84443; 84484; 85025; 85610; 85652; 85730; 86038; 86140; 86592; 90732; 93306; 93880; 94150; 94640; 94664; 94667; 94668; 95819; 96360; 96361; 96365; 96366; 96372; 96375; 97161; 99285; G0378; G8987; G8988; G8989; J0692; J1650; J2060; J7030; Q2038; Q9967; 90686